=== PATIENT | male | born 1960 | race African-American/Black ===

== ENCOUNTER 2020-03-27 08:30 | Emergency (ER) | payer MEDICAID ==
[~2020-03-27] VITALS: Ht 172.7 cm; Wt 84.8 kg
[~2020-03-27 08:30] MED LIST: ADVAIR; BP PILL; FLUT1BLS9 PO; IPRA3AMP18; LISI2.5T PO; LISI40TA PO
[2020-03-27 08:31] VITALS: BP 208/108
== END 2020-03-27 08:44 ==
LOC: ED 08:35
DX: R53.83 Other fatigue (principal); R53.1 Weakness; I10 Essential (primary) hypertension; Z00.00 Encounter for general adult medical examination without abnormal findings
CPT/HCPCS: 99281

== ENCOUNTER 2020-06-14 23:37 | Emergency (ER) | payer MEDICAID ==
[~2020-06-14] VITALS: Ht 172.7 cm; Wt 80.2 kg
[2020-06-14 23:41] VITALS: BP 138/90
--- NOTE | 2020-06-15 01:46 | NUR ---
to lobby for discharge, pt and gone
== END 2020-06-15 01:47 | disposition left against medical advice (07) ==
LOC: ED 06-15 00:07
DX: M54.5 Low back pain (principal); M25.511 Pain in right shoulder; I10 Essential (primary) hypertension; J45.909 Unspecified asthma, uncomplicated
CPT/HCPCS: 72072; 72110; 99284

== ENCOUNTER 2020-09-04 03:35 | Emergency (ER) | payer MEDICAID ==
[~2020-09-04] VITALS: Ht 172.7 cm; Wt 80.0 kg
[2020-09-04 03:37] VITALS: BP 152/83
[2020-09-04] MEDS ORDERED: BUPIVACAINE 0.25% INFIL ONE (04:00)
[2020-09-04] MEDS ORDERED: CLINDAMYCIN 300 MG CAPSULE PO ONE (04:00)
[2020-09-04] MEDS ORDERED: CLINDAMYCIN 300 MG CAPSULE ONE (04:01)
[2020-09-04] MEDS ORDERED: BUPIVACAINE 0.25% ONE (04:01)
== END 2020-09-04 04:31 | disposition home or self-care (01) ==
LOC: ED 04:15
DX: K04.7 Periapical abscess without sinus (principal); I10 Essential (primary) hypertension; J45.909 Unspecified asthma, uncomplicated
CPT/HCPCS: 41800; 99284

== ENCOUNTER 2021-01-27 11:03 | Emergency (ER) | payer MEDICAID ==
[~2021-01-27] VITALS: Ht 172.7 cm; Wt 84.8 kg
[~2021-01-27 11:03] MED LIST changes: -LISI40TA PO; +LISI40TA9 PO
[2021-01-27] MEDS ORDERED: PENICILLIN VK 500MG TABLET PO ONE (11:30)
[2021-01-27] MEDS ORDERED: LIDOCAINE 1%, 10ML INFIL ONE (11:30)
[2021-01-27 11:31] VITALS: BP 171/100
--- NOTE | 2021-01-27 11:39 | NUR ---
PT PRESENTS TO ED WITH C/O R DENTAL PAIN X1 MONTH. R SIDED FACIAL SWELLING AND ERYTHEMA NOTED. PT A&O, RESPS EVEN AND UNLABORED, NADN. ERMD AT BEDSIDE FOR EVAL.
[2021-01-27] MEDS ORDERED: LIDOCAINE-MPF 1%, 5ML ONE (11:41)
[2021-01-27] MEDS ORDERED: PENICILLIN VK 500MG TABLET ONE (11:43)
--- NOTE | 2021-01-27 11:49 | NUR ---
DARREL WILKERSON AT BEDSIDE FOR I&D
--- NOTE | 2021-01-27 12:11 | NUR ---
discharge instructions reviewed, pt verbalized understanding. ambulatory to discharge desk with steady gait.
== END 2021-01-27 12:13 | disposition home or self-care (01) ==
LOC: ED 12:05
DX: K02.9 Dental caries, unspecified (principal); I10 Essential (primary) hypertension; J45.909 Unspecified asthma, uncomplicated
CPT/HCPCS: 41800; 99284